=== PATIENT | male | born 1980 | race Caucasian/White ===

== ENCOUNTER 2020-06-05 20:03 | Emergency (ER) | payer OTHER ==
[2020-06-05 20:28] LABS: BASOPHIL 0.3 % (0-2); EOSINOPHIL 1.1 % (0-5); HCT 39.1 % (42.0-52.0); HGB 13.5 g/dl (13.2-18.0); LYMPHOCYTE 16.2 % (15-48); MCH 31.4 pg (25.0-31.0); MCHC 34.5 g/dL (32.0-36.0); MCV 90.9 fL (78.0-100.0); MPV 11.2 fL (6.0-9.5); NEUTROPHIL 75.1 % (41-80); NRBC 0; PLT 255 K/uL (150-400); RDW 14.1 % (11.5-14.0); WBC 10.8 K/uL (4.0-10.5)
[2020-06-05 20:39] LABS: ALBUMIN 3.5 g/dL (3.4-5.0); ALKALINE PHOSHATASE 82 U/L (46-116); ALT 39 U/L (16-63); AST 77 U/L (15-37); BILIRUBIN - TOTAL 0.4 mg/dL (0.2-1.0); BUN 12 mg/dL (7-18); BUN/CREAT RATIO (CALC) 12.1 RATIO; CHLORIDE 104 mmol/L (98-107); CO2 (BICARBONATE) 33 mmol/L (21-32); CREATININE 0.99 mg/dL (0.67-1.17); GLOBULIN (CALCULATION) 3.2 g/dL; GLUCOSE 86 mg/dL (74-106); POTASSIUM 3.5 mmol/L (3.5-5.1); TOTAL PROTEIN 6.7 g/dL (6.4-8.2)
[2020-06-05 22:23] LABS: MARIJUANA (THC) POSITIVE (NEGATIVE)
[2020-06-05 22:24] LABS: ECSTASY (MDMA) NEGATIVE (NEGATIVE); METHADONE NEGATIVE (NEGATIVE); OPIATES NEGATIVE (NEGATIVE)
[2020-06-05 22:25] LABS: AMPHETAMINES NEGATIVE (NEGATIVE); BARBITURATES NEGATIVE (NEGATIVE); OXYCODONE NEGATIVE (NEGATIVE)
== END 2020-06-06 01:45 ==
LOC: FER 20:03
PROVIDERS: Emergency Medicine
DX: R07.89 Other chest pain (principal); R45.851 Suicidal ideations; R06.02 Shortness of breath; R42 Dizziness and giddiness; R00.2 Palpitations; Z87.891 Personal history of nicotine dependence; Z20.822 Contact with and (suspected) exposure to COVID-19
CPT/HCPCS: 36415; 71045; 80053; 80305; 84484; 85025; 93005; G0480; J2060; U0002

== ENCOUNTER 2021-11-27 11:32 | Emergency (ER) | payer OTHER ==
[2021-11-27] MEDS ORDERED: PERCOCET 5-3251 EACH PO (13:52)
[2021-11-27] MEDS ORDERED: NAPROXEN500 MG PO (13:52)
== END 2021-11-27 14:40 | disposition home or self-care (01) ==
LOC: FER 11:32
DX: S52.612A Displaced fracture of left ulna styloid process, initial encounter for closed fracture (principal); S52.502A Unspecified fracture of the lower end of left radius, initial encounter for closed fracture; F17.290 Nicotine dependence, other tobacco product, uncomplicated; F90.9 Attention-deficit hyperactivity disorder, unspecified type; Z79.899 Other long term (current) drug therapy; Z28.310 Unvaccinated for COVID-19; W19.XXXA Unspecified fall, initial encounter; Y92.009 Unspecified place in unspecified non-institutional (private) residence as the place of occurrence of the external cause
CPT/HCPCS: 73100; 73110; J1170; J3010